=== PATIENT | female | born 1990 | race Caucasian/White ===

== ENCOUNTER 2018-04-02 23:24 | Emergency (ER) | payer MEDICAID, OTHER ==
[~2018-04-02] VITALS: Ht 170.2 cm; Wt 95.4 kg
[~2018-04-02 23:24] MED LIST: AZI25OT PO; BUSP5TAB26 PO; CETI-110 PO; FLUC150T PO; FLUO20CA22 PO; FLUT16SP18 NS; HYDR-3686 PO; PHEN-824 PO; PRAZ1CAP5 PO; QUET100T33 PO; QUET25TA34 PO
[2018-04-03] MEDS ORDERED: ondansetron/PF 4mg/2ml inj IV ONE (00:35)
[2018-04-03] MEDS ORDERED: dicyclomine 10 MG capsule PO ONE (00:35)
[2018-04-03] MEDS ORDERED: normal saline 1000ML IV soln IVB ONE (00:35)
[2018-04-03 00:44] LABS: CLARITY,URINE SLIGHTLY CLOUDY (Clear); COLOR,URINE YELLOW (Yellow); GLUCOSE, URINE NEGATIVE (Neg); KETONES,URINE 15 mg/dl (Neg); LEUKOCYTE ESTERASE ,URINE SMALL (Neg); NITRITES, URINE NEGATIVE (Neg); OCCULT BLOOD,URINE LARGE (Neg); PH,URINE 6.5 (4.8-8.0); PROTEIN,URINE NEGATIVE (Neg); UROBILINOGEN,URINE 0.2 E.U/dL (0.2-1.0)
[2018-04-03 00:45] LABS: UA COLLECTION TYPE CLN CATCH MIDSTREAM
[2018-04-03 00:46] LABS: URINE HCG NEGATIVE (NEG)
[2018-04-03 00:50] LABS: BACTERIA,URINE FEW /HPF (Neg); MUCUS STRANDS MANY /LPF (Neg); SQUAMOUS EPITHELIAL CELL,UR FEW /LPF (FEW)
[2018-04-03 02:04] LABS: BASOPHILS % (AUTO) 0.3 % (0-1); EOSINOPHILS # (AUTO) 0.2 X10'3 (0-0.9); EOSINOPHILS % (AUTO) 1.6 % (0-6); HEMATOCRIT 39.7 % (35.0-45.0); HEMOGLOBIN 13.6 g/dl (12.0-16.0); LYMPHOCYTES # (AUTO) 2.8 X10'3 (1.1-4.8); LYMPHOCYTES % (AUTO) 23.7 % (21-51); MEAN CORPUSCULAR HEMOGLOBIN 30.9 PG (27.0-31.0); MEAN CORPUSCULAR HGB CONC 34.3 % (33.0-36.5); MEAN CORPUSCULAR VOLUME 90.2 FL (78-98); MEAN PLATELET VOLUME 9.4 FL (7.4-10.4); MONOCYTES # (AUTO) 0.6 X10'3 (0-0.9); MONOCYTES % (AUTO) 4.8 % (2-12); NEUTROPHILS # (AUTO) 8.2 X10'3 (1.8-7.7); NEUTROPHILS % (AUTO) 69.6 % (42-75); PLATELET COUNT 268 X10'3 (140-440); RED BLOOD COUNT 4.41 X10'6 (4.20-5.60); RED CELL DISTRIBUTION WIDTH 13.3 % (11.5-14.5); WHITE BLOOD COUNT 11.8 X10'3 (4.5-11.0)
[2018-04-03 02:14] LABS: ALANINE AMINOTRANSFERASE 27 U/L (12-78); ALBUMIN 4.1 G/DL (3.4-5.0); ALBUMIN/GLOBULIN RATIO 1.1 (1.1-1.5); ALKALINE PHOSPHATASE 119 IU/L (46-116); ANION GAP 13 (8-16); ASPARTATE AMINO TRANSFERASE 17 U/L (10-37); BILIRUBIN,TOTAL 0.6 MG/DL (0.1-1.0); BLOOD UREA NITROGEN 14 MG/DL (7-18); BUN/CREATININE RATIO 19.7 (6.6-38.0); CALCIUM 9.6 MG/DL (8.5-10.1); CHLORIDE 102 MMOL/L (99-107); CREATININE 0.71 MG/DL (0.40-0.90); GLUCOSE 92 MG/DL (70-104); LIPASE 106 U/L (73-393); POTASSIUM 3.8 MMOL/L (3.5-5.1); SODIUM 140 MMOL/L (135-145); TOTAL CARBON DIOXIDE 24.9 MMOL/L (24-32); TOTAL PROTEIN 7.9 G/DL (6.4-8.2); eGFR > 90 ML/MIN
[2018-04-03] MEDS ORDERED: ONDA8TAB6 PO (02:30)
[2018-04-03] MEDS ORDERED: DICY10CA88 PO (02:30)
[2018-04-03 02:51] VITALS: BP 133/70
== END 2018-04-03 02:52 | disposition home or self-care (01) ==
LOC: ER 23:25
DX: R10.84 Generalized abdominal pain (principal); R11.10 Vomiting, unspecified; G43.909 Migraine, unspecified, not intractable, without status migrainosus; K21.9 Gastro-esophageal reflux disease without esophagitis; F12.10 Cannabis abuse, uncomplicated; Z79.899 Other long term (current) drug therapy
CPT/HCPCS: 36415; 80053; 81001; 81025; 83690; 85025; 87088; 96361; 96374; 99284; J2405; J7030

== ENCOUNTER 2018-06-09 15:06 | Emergency (ER) | payer MEDICAID ==
[~2018-06-09] VITALS: Ht 170.2 cm; Wt 90.0 kg
[~2018-06-09 15:06] MED LIST changes: +DICY10CA88 PO; +ONDA8TAB6 PO
[2018-06-09 16:23] LABS: CLARITY,URINE TURBID (Clear); COLOR,URINE YELLOW (Yellow); GLUCOSE, URINE NEGATIVE (Neg); KETONES,URINE 15 mg/dl (Neg); LEUKOCYTE ESTERASE ,URINE LARGE (Neg); NITRITES, URINE NEGATIVE (Neg); OCCULT BLOOD,URINE LARGE (Neg); PROTEIN,URINE 100 mg/dl (Neg); URINE HCG NEGATIVE (NEG)
[2018-06-09 16:24] LABS: UA COLLECTION TYPE CLN CATCH MIDSTREAM
[2018-06-09 16:27] LABS: BASOPHILS % (AUTO) 0.3 % (0-1); EOSINOPHILS # (AUTO) 0.1 X10'3 (0-0.9); EOSINOPHILS % (AUTO) 0.8 % (0-6); HEMATOCRIT 44.3 % (35.0-45.0); HEMOGLOBIN 15.3 g/dl (12.0-16.0); LYMPHOCYTES # (AUTO) 2.3 X10'3 (1.1-4.8); LYMPHOCYTES % (AUTO) 22.7 % (21-51); MEAN CORPUSCULAR HEMOGLOBIN 30.9 PG (27.0-31.0); MEAN CORPUSCULAR HGB CONC 34.6 % (33.0-36.5); MEAN CORPUSCULAR VOLUME 89.2 FL (78-98); MEAN PLATELET VOLUME 8.6 FL (7.4-10.4); MONOCYTES # (AUTO) 0.4 X10'3 (0-0.9); MONOCYTES % (AUTO) 4.4 % (2-12); NEUTROPHILS # (AUTO) 7.2 X10'3 (1.8-7.7); NEUTROPHILS % (AUTO) 71.8 % (42-75); PLATELET COUNT 312 X10'3 (140-440); RED BLOOD COUNT 4.96 X10'6 (4.20-5.60); RED CELL DISTRIBUTION WIDTH 13.3 % (11.5-14.5); WHITE BLOOD COUNT 10.1 X10'3 (4.5-11.0)
[2018-06-09 16:29] LABS: BACTERIA,URINE 4+ /HPF (Neg); MUCUS STRANDS MANY /LPF (Neg); SQUAMOUS EPITHELIAL CELL,UR MANY /LPF (FEW); WBC,URINE 50-100 /HPF (0-4)
[2018-06-09 16:38] LABS: INR 1.1 INR; PROTHROMBIN TIME 11.3 SECONDS (9.0-12.0)
[2018-06-09 16:46] LABS: ALANINE AMINOTRANSFERASE 25 U/L (12-78); ALBUMIN 4.6 G/DL (3.4-5.0); ALBUMIN/GLOBULIN RATIO 1.1 (1.1-1.5); ALKALINE PHOSPHATASE 153 IU/L (46-116); ANION GAP 12 (8-16); ASPARTATE AMINO TRANSFERASE 17 U/L (10-37); BILIRUBIN,TOTAL 0.7 MG/DL (0.1-1.0); BLOOD UREA NITROGEN 13 MG/DL (7-18); BUN/CREATININE RATIO 16.5 (6.6-38.0); CALCIUM 9.9 MG/DL (8.5-10.1); CHLORIDE 101 MMOL/L (99-107); CREATININE 0.79 MG/DL (0.40-0.90); GLUCOSE 86 MG/DL (70-104); POTASSIUM 3.6 MMOL/L (3.5-5.1); SODIUM 139 MMOL/L (135-145); TOTAL CARBON DIOXIDE 25.7 MMOL/L (24-32); TOTAL PROTEIN 8.8 G/DL (6.4-8.2); eGFR 87 ML/MIN
[2018-06-09] MEDS ORDERED: diphenhydrAMINE 50 mg/ml inj IV ONE (18:40)
[2018-06-09] MEDS ORDERED: CefTRIAXone 2gm/D5W 50ml 50 ML IV ONE (18:40)
[2018-06-09] MEDS ORDERED: LORazepam 2 mg/ml vial IV ONE (18:40)
[2018-06-09] MEDS ORDERED: normal saline 1000ML IV soln IVB ONE (18:40)
[2018-06-09] MEDS ORDERED: metoclopramide 5 mg/ml inj IV ONE (18:40)
[2018-06-09] MEDS ORDERED: ketorolac trometh. 30mg/ml inj. IV ONE (18:40)
[2018-06-09] MEDS ORDERED: ONDA4TAB12 PO (18:41)
[2018-06-09] MEDS ORDERED: CEPH500C5 PO (18:41)
[2018-06-09 20:06] VITALS: BP 122/59
== END 2018-06-09 20:09 | disposition home or self-care (01) ==
LOC: ER 15:07
DX: N39.0 Urinary tract infection, site not specified (principal); R10.11 Right upper quadrant pain; G43.909 Migraine, unspecified, not intractable, without status migrainosus; K21.9 Gastro-esophageal reflux disease without esophagitis; F12.90 Cannabis use, unspecified, uncomplicated; Z79.2 Long term (current) use of antibiotics; Z79.899 Other long term (current) drug therapy
CPT/HCPCS: 36415; 80053; 81001; 81025; 85025; 85610; 96365; 96375; 99284; J0696; J1200; J1885; J2060; J2765; J7030

== ENCOUNTER 2019-10-18 09:32 | Emergency (ER) | payer MEDICAID ==
[~2019-10-18] VITALS: Ht 170.2 cm; Wt 107.0 kg
[~2019-10-18 09:32] MED LIST changes: +ONDA4TAB12 PO
[2019-10-18 09:38] VITALS: BP 124/82
--- NOTE | 2019-10-18 09:45 | NUR ---
pt is in room and gave urine sample
--- NOTE | 2019-10-18 10:00 | NUR ---
lab came and jerad blood from pt
[2019-10-18 10:04] LABS: BASOPHILS % (AUTO) 0.3 % (0-1); EOSINOPHILS # (AUTO) 0.1 X10'3 (0-0.9); EOSINOPHILS % (AUTO) 1.2 % (0-6); HEMATOCRIT 37.9 % (35.0-45.0); HEMOGLOBIN 12.9 g/dl (12.0-16.0); LYMPHOCYTES # (AUTO) 2.3 X10'3 (1.1-4.8); LYMPHOCYTES % (AUTO) 29.2 % (21-51); MEAN CORPUSCULAR HEMOGLOBIN 32.2 PG (27.0-31.0); MEAN CORPUSCULAR VOLUME 94.6 FL (78-98); MEAN PLATELET VOLUME 9.3 FL (7.4-10.4); MONOCYTES # (AUTO) 0.3 X10'3 (0-0.9); MONOCYTES % (AUTO) 3.9 % (2-12); NEUTROPHILS # (AUTO) 5.1 X10'3 (1.8-7.7); NEUTROPHILS % (AUTO) 65.4 % (42-75); PLATELET COUNT 210 X10'3 (140-440); RED CELL DISTRIBUTION WIDTH 12.4 % (11.5-14.5); WHITE BLOOD COUNT 7.9 X10'3 (4.5-11.0)
[2019-10-18 10:13] LABS: URINE HCG NEGATIVE (NEG)
--- NOTE | 2019-10-18 10:20 | NUR ---
pt is awake and laying down
[2019-10-18 10:30] LABS: ALANINE AMINOTRANSFERASE 20 U/L (12-78); ALBUMIN 3.6 G/DL (3.4-5.0); ALKALINE PHOSPHATASE 78 IU/L (46-116); ANION GAP 12 (8-16); ASPARTATE AMINO TRANSFERASE 15 U/L (10-37); BILIRUBIN,TOTAL 0.2 MG/DL (0.1-1.0); BLOOD UREA NITROGEN 12 MG/DL (7-18); BUN/CREATININE RATIO 15.8 (6.6-38.0); CHLORIDE 105 MMOL/L (99-107); CREATININE 0.76 MG/DL (0.40-0.90); GLUCOSE 85 MG/DL (70-104); POTASSIUM 3.6 MMOL/L (3.5-5.1); SODIUM 141 MMOL/L (135-145); TOTAL CARBON DIOXIDE 24.4 MMOL/L (24-32); TOTAL PROTEIN 7.3 G/DL (6.4-8.2); eGFR 90 ML/MIN
[2019-10-18 10:37] LABS: ETHANOL < 0.010 GM/DL (0.0-0.010)
[2019-10-18 10:41] LABS: URINE AMPHETAMINE SCREEN NEGATIVE (Neg); URINE BARBITUATE SCREEN NEGATIVE (Neg); URINE BENZODIAZEPINES SCREEN NEGATIVE (Neg); URINE CANNABINOID SCREEN POSITIVE (Neg); URINE COCAINE SCREEN NEGATIVE (Neg); URINE METHADONE SCREEN NEGATIVE (Neg); URINE OPIATE SCREEN NEGATIVE (Neg); URINE PHENCYCLIDINE SCREEN NEGATIVE (Neg)
--- NOTE | 2019-10-18 10:45 | NUR ---
pt resting on back
--- NOTE | 2019-10-18 11:15 | NUR ---
pt laying on left side relaxing
[2019-10-18] MEDS ORDERED: BACL20TA PO (11:25)
[2019-10-18] MEDS ORDERED: GABA-534 PO (11:25)
[2019-10-18] MEDS ORDERED: FLUC150T66 PO (11:35)
[2019-10-18] MEDS ORDERED: CETI-102 PO (11:35)
[2019-10-18] MEDS ORDERED: QUET300T2 PO (11:35)
[2019-10-18] MEDS ORDERED: FLUT16SP2 BOTHNARES (11:35)
[2019-10-18] MEDS ORDERED: QUET25TA PO (11:35)
--- NOTE | 2019-10-18 11:45 | NUR ---
pt still on left side moved a little but went back to left side
--- NOTE | 2019-10-18 12:12 | NUR ---
pts brothers are here to visit pt
--- NOTE | 2019-10-18 12:20 | NUR ---
Pt lying on left side sleeping. Chest rises visible.
[2019-10-18] MEDS ORDERED: gabapentin 400mg capsule PO PRN (12:30)
[2019-10-18] MEDS ORDERED: baclofen 10mg tablet PO PRN ×2 (13:00)
--- NOTE | 2019-10-18 13:00 | NUR ---
breaking primary RN, pt is resting on her right side, eyes closed, regular breathing present, stable
--- NOTE | 2019-10-18 14:16 | NUR ---
[facility] currently evaluating Pt. Pt in bed answering questions.
--- NOTE | 2019-10-18 14:45 | NUR ---
Pt DC'd home with brother. Pt stable at DC, vitals WNL. Pt did not meet [facility] requirment for a hold. Pt stated she is feeling much better and wants to go home. Went over DC paperwork with Pt. Allowed Pt to ask questions and then asnwer them. Pt stated she will make follow up appt with her PCP when she gets home. Pt's belongings gathered and sent with Pt. Pt ambulated to lobby after DC to be picked up by brother adn driven home.
[2019-10-18] MEDS ORDERED: QUEtiapine 25mg tablet PO SCH (20:00)
[2019-10-18] MEDS ORDERED: quetiapine 100mg tablet PO SCH (21:00)
[2019-10-19] MEDS ORDERED: cetirizine 10mg tablet PO SCH (08:00)
[2019-10-19] MEDS ORDERED: fluticasone nasal spray 16GM bottle NS SCH (08:00)
== END 2019-10-18 15:04 | disposition home or self-care (01) ==
LOC: ER 09:33
DX: F32.9 Major depressive disorder, single episode, unspecified (principal); R45.851 Suicidal ideations; G43.909 Migraine, unspecified, not intractable, without status migrainosus; K21.9 Gastro-esophageal reflux disease without esophagitis; G89.29 Other chronic pain; F41.9 Anxiety disorder, unspecified; F12.90 Cannabis use, unspecified, uncomplicated; Z79.899 Other long term (current) drug therapy; Z79.2 Long term (current) use of antibiotics
CPT/HCPCS: 36415; 80053; 80305; 80320; 81025; 84443; 85025; 99284

== ENCOUNTER 2022-01-02 08:19 | Emergency (ER) | payer MEDICAID ==
[~2022-01-02] VITALS: Ht 170.2 cm; Wt 52.0 kg
[~2022-01-02 08:19] MED LIST changes: -AZI25OT PO; +BACL20TA PO; -BUSP5TAB26 PO; -CETI-110 PO; +CETI-90 PO; -DICY10CA88 PO; -FLUC150T PO; -FLUO20CA22 PO; -FLUT16SP18 NS; +FLUT16SP2 BOTHNARES; +GABA-534 PO; -HYDR-3686 PO; -ONDA4TAB12 PO; -ONDA8TAB6 PO; -PHEN-824 PO; -PRAZ1CAP5 PO; -QUET100T33 PO; +QUET25TA PO; -QUET25TA34 PO; +QUET300T2 PO
[2022-01-02 08:24] VITALS: BP 108/69
--- NOTE | 2022-01-02 09:00 | NUR ---
DR. SCHAEFFER AT BEDSIDE.
--- NOTE | 2022-01-02 09:21 | NUR ---
TELEPHONE REPORT GIVEN TO AVA AMIN
--- NOTE | 2022-01-02 09:30 | NUR ---
PT BROUGHT TO OF FROM MAIN ER. MET WITH PT SHE STATES SHE IS TIRED AND WOULD LIKE TO REST. PT PROPERTY COLLECTED AND PLACED IN RM 27 LOCKERS.
[2022-01-02 09:45] LABS: BASOPHILS % (AUTO) 0.7 % (0-1); EOSINOPHILS # (AUTO) 0.1 X10'3 (0-0.9); EOSINOPHILS % (AUTO) 2.5 % (0-6); HEMATOCRIT 36.7 % (35.0-45.0); HEMOGLOBIN 12.8 g/dl (12.0-16.0); LYMPHOCYTES # (AUTO) 2.3 X10'3 (1.1-4.8); LYMPHOCYTES % (AUTO) 42.9 % (21-51); MEAN CORPUSCULAR HEMOGLOBIN 32.5 PG (27.0-31.0); MEAN CORPUSCULAR HGB CONC 34.8 g/dL (33.0-36.5); MEAN CORPUSCULAR VOLUME 93.4 FL (78-98); MEAN PLATELET VOLUME 8.8 FL (7.4-10.4); MONOCYTES # (AUTO) 0.4 X10'3 (0-0.9); MONOCYTES % (AUTO) 6.8 % (2-12); NEUTROPHILS # (AUTO) 2.5 X10'3 (1.8-7.7); NEUTROPHILS % (AUTO) 47.1 % (42-75); PLATELET COUNT 211 X10'3 (140-440); RED BLOOD COUNT 3.93 X10'6 (4.20-5.60); RED CELL DISTRIBUTION WIDTH 13.8 % (11.5-14.5); WHITE BLOOD COUNT 5.3 X10'3 (4.5-11.0)
[2022-01-02 09:52] LABS: ALANINE AMINOTRANSFERASE 39 U/L (12-78); ALBUMIN 3.6 G/DL (3.4-5.0); ALBUMIN/GLOBULIN RATIO 1.1 (1.1-1.5); ALKALINE PHOSPHATASE 85 IU/L (46-116); ANION GAP 8 (8-16); ASPARTATE AMINO TRANSFERASE 20 U/L (10-37); BILIRUBIN,TOTAL 0.4 MG/DL (0.1-1.0); BLOOD UREA NITROGEN 13 MG/DL (7-18); BUN/CREATININE RATIO 18.6 (6.6-38.0); CALCIUM 8.5 MG/DL (8.5-10.1); CHLORIDE 107 MMOL/L (99-107); GLUCOSE 88 MG/DL (70-104); POTASSIUM 4.1 MMOL/L (3.5-5.1); SODIUM 142 MMOL/L (135-145); TOTAL CARBON DIOXIDE 27.3 MMOL/L (24-32); TOTAL PROTEIN 6.9 G/DL (6.4-8.2); eGFR > 90 ML/MIN
[2022-01-02 10:03] LABS: ETHANOL < 0.010 GM/DL (0.0-0.010)
[2022-01-02 10:22] LABS: URINE HCG NEGATIVE (NEG)
[2022-01-02 10:30] LABS: CLARITY,URINE CLEAR (Clear); COLOR,URINE YELLOW (Yellow); GLUCOSE, URINE NEGATIVE (Neg); KETONES,URINE NEGATIVE (Neg); LEUKOCYTE ESTERASE ,URINE NEGATIVE (Neg); NITRITES, URINE NEGATIVE (Neg); OCCULT BLOOD,URINE NEGATIVE (Neg); PROTEIN,URINE NEGATIVE (Neg); URINE AMPHETAMINE SCREEN NEGATIVE (Neg); URINE BARBITUATE SCREEN NEGATIVE (Neg); URINE BENZODIAZEPINES SCREEN NEGATIVE (Neg); URINE CANNABINOID SCREEN POSITIVE (Neg); URINE COCAINE SCREEN NEGATIVE (Neg); URINE METHADONE SCREEN NEGATIVE (Neg); URINE OPIATE SCREEN NEGATIVE (Neg); URINE PHENCYCLIDINE SCREEN NEGATIVE (Neg); UROBILINOGEN,URINE 0.2 E.U/dL (0.2-1.0)
[2022-01-02 10:44] LABS: UA COLLECTION TYPE NON-SPECIFIED
--- NOTE | 2022-01-02 11:25 | NUR ---
PT HAS BEEN ON THE PHONE ARGUING AND CUSSING OUT HER SIGNIFICANT OTHER. SHE DENIES SA. SHE STATES, "I WAS ANGRY, I HAD THE KNIFE IN MY HAND.' 'I WAS VERY CLOSE TO AN ATTEMPT." PT IS PLEASANT WITH STAFF.
[2022-01-02] MEDS ORDERED: LURA80TA2 PO (12:22)
[2022-01-02] MEDS ORDERED: MIRT-87 PO (12:22)
[2022-01-02] MEDS ORDERED: PRAZ1CAP5 PO (12:22)
[2022-01-02] MEDS ORDERED: PRAZ2CAP2 PO (12:22)
--- NOTE | 2022-01-02 12:30 | NUR ---
PACKET SENT TO [facility] OFFICE
--- NOTE | 2022-01-02 13:11 | NUR ---
PT EATING LUNCH. SHE WAS GIVEN A WARM BLANKET PER REQUEST.
--- NOTE | 2022-01-02 13:58 | NUR ---
PT IS RESTING. APPEARS TO BE SLEEPING. RR EVEN AND UNLABORED.
--- NOTE | 2022-01-02 15:12 | NUR ---
PT REMAINS SLEEPING ON HER RIGHT SIDE. RR EVEN AND UNLABORED.
--- NOTE | 2022-01-02 15:58 | NUR ---
PT DISCHARGED HOME WITH HER SIGNIFICANT OTHER. ALL PERSONAL BELONGINGS RETURNED TO PT. PT DENIES THOUGHTS TO HARM SELF AND IS NO LONGER FEELING SUICIDIAL.
[2022-01-02] MEDS ORDERED: non-formulary drug (Prazosin Hcl 2 MG) PO SCH (21:00)
[2022-01-02] MEDS ORDERED: mirtazapine 15mg tablet PO SCH (21:00)
[2022-01-02] MEDS ORDERED: lurasidone 20mg tablet PO SCH (21:00)
[2022-01-02] MEDS ORDERED: prazosin 1mg capsule PO SCH (21:00)
== END 2022-01-02 16:38 | disposition home or self-care (01) ==
LOC: ER 08:20
DX: R45.851 Suicidal ideations (principal); G43.909 Migraine, unspecified, not intractable, without status migrainosus; Z20.822 Contact with and (suspected) exposure to COVID-19; K21.9 Gastro-esophageal reflux disease without esophagitis; F41.9 Anxiety disorder, unspecified; G89.29 Other chronic pain; F32.9 Major depressive disorder, single episode, unspecified; F12.90 Cannabis use, unspecified, uncomplicated; Z72.89 Other problems related to lifestyle; Z79.899 Other long term (current) drug therapy
CPT/HCPCS: 36415; 80053; 80305; 80320; 81003; 81025; 84443; 85025; 87635; 99285; C9803

== ENCOUNTER 2023-07-23 09:51 | Emergency (ER) | payer MEDICAID ==
[~2023-07-23] VITALS: Ht 170.2 cm; Wt 60.6 kg
[~2023-07-23 09:51] MED LIST changes: -GABA-534 PO; +GABA-535 PO; +LURA80TA2 PO; +MIRT-87 PO; +PRAZ1CAP5 PO; +PRAZ2CAP2 PO
[2023-07-23 11:13] LABS: BASOPHILS % (AUTO) 0.3 % (0-1); EOSINOPHILS # (AUTO) 0.1 X10'3 (0-0.9); EOSINOPHILS % (AUTO) 0.7 % (0-6); HEMATOCRIT 38.6 % (35.0-45.0); HEMOGLOBIN 12.7 g/dl (12.0-16.0); LYMPHOCYTES # (AUTO) 2.1 X10'3 (1.1-4.8); LYMPHOCYTES % (AUTO) 16.4 % (21-51); MEAN CORPUSCULAR HEMOGLOBIN 32.3 PG (27.0-31.0); MEAN CORPUSCULAR VOLUME 97.8 FL (78-98); MEAN PLATELET VOLUME 8.3 FL (7.4-10.4); MONOCYTES # (AUTO) 0.9 X10'3 (0-0.9); MONOCYTES % (AUTO) 7.1 % (2-12); NEUTROPHILS # (AUTO) 9.5 X10'3 (1.8-7.7); NEUTROPHILS % (AUTO) 75.5 % (42-75); PLATELET COUNT 298 X10'3 (140-440); RED BLOOD COUNT 3.94 X10'6 (4.20-5.60); RED CELL DISTRIBUTION WIDTH 13.2 % (11.5-14.5); WHITE BLOOD COUNT 12.6 X10'3 (4.5-11.0)
[2023-07-23 11:23] LABS: ALANINE AMINOTRANSFERASE 13 U/L (12-78); ALBUMIN 2.9 G/DL (3.4-5.0); ALBUMIN/GLOBULIN RATIO 0.6 (1.1-1.5); ALKALINE PHOSPHATASE 106 IU/L (46-116); ANION GAP 7 (8-16); ASPARTATE AMINO TRANSFERASE 18 U/L (10-37); BILIRUBIN,TOTAL 0.4 MG/DL (0.1-1.0); BLOOD UREA NITROGEN 8 MG/DL (7-18); CALCIUM 9.1 MG/DL (8.5-10.1); CHLORIDE 101 MMOL/L (99-107); CREATININE 0.47 MG/DL (0.40-0.90); GLUCOSE 85 MG/DL (70-104); POTASSIUM 4.1 MMOL/L (3.5-5.1); SODIUM 135 MMOL/L (135-145); TOTAL CARBON DIOXIDE 27.2 MMOL/L (24-32); TOTAL PROTEIN 7.4 G/DL (6.4-8.2); eCRCL 164 ML/MIN; eGFR > 90 ML/MIN
[2023-07-23 11:36] LABS: ETHANOL < 10 MG/DL (<10)
[2023-07-23 12:00] LABS: URINE AMPHETAMINE SCREEN NEGATIVE (Neg); URINE BARBITUATE SCREEN NEGATIVE (Neg); URINE BENZODIAZEPINES SCREEN NEGATIVE (Neg); URINE CANNABINOID SCREEN POSITIVE (Neg); URINE COCAINE SCREEN NEGATIVE (Neg); URINE METHADONE SCREEN NEGATIVE (Neg); URINE OPIATE SCREEN NEGATIVE (Neg); URINE PHENCYCLIDINE SCREEN NEGATIVE (Neg)
[2023-07-23 12:19] LABS: URINE HCG POSITIVE (NEG)
--- NOTE | 2023-07-23 12:45 | NUR ---
Patient brought to bed 24 from ER. Patient is and states that she and her S/O got into a fight last night and was feeling suicidal. She said she awoke and her boyfriend started arguing with her and she left and came to the ER. Patient reports that she needs a medication to help with her emotions while she is .
--- NOTE | 2023-07-23 13:45 | NUR ---
Patient up to the restroom. Faxed down request for lunch x 2, awaiting her lunch.
[2023-07-23] MEDS ORDERED: PNV,1TAB PO (13:52)
--- NOTE | 2023-07-23 15:02 | NUR ---
Patient up to the restroom, then back to bed.
--- NOTE | 2023-07-23 15:04 | NUR ---
Patient is on a 1799 per the M.D., but will not be put on a hold tonight. [facility] will work on a safe discharge plan tomorrow.
--- NOTE | 2023-07-23 16:40 | NUR ---
Patient up to the restroom, then back to bed with a warm blanket.
--- NOTE | 2023-07-23 17:23 | NUR ---
Patient in the restroom, and back to bed.
[2023-07-23] MEDS ORDERED: ondansetron 4mg rapidly disintigrating tab PO ONE (18:55)
--- NOTE | 2023-07-23 19:31 | NUR ---
Client reported nausea. Given 4 mg Zofran ODT at 19:15.
--- NOTE | 2023-07-23 20:16 | NUR ---
Client reported nausea has improved. Denies SI at this time. Client reported that she began cutting at age 13 yo, and has had several SA's. Client is vague about prior attempts. She did not state how or when she made the attempts. She is resting at this time.
--- NOTE | 2023-07-23 21:37 | NUR ---
Ambulated to restroom at 21:35.
--- NOTE | 2023-07-23 23:03 | NUR ---
Ambulated to restroom at 22:40 and returned to bed. Fell asleep w/o difficulty. Resp even and unlabored.
--- NOTE | 2023-07-24 02:00 | NUR ---
Resting on right side. Respirations even and unlabored.
--- NOTE | 2023-07-24 04:00 | NUR ---
Resting on right side. Resp even and unlabored.
[2023-07-24 05:33] VITALS: BP 103/59; PULSE 74; RESP 14; TEMP 97.1; O2SAT 97
--- NOTE | 2023-07-24 05:45 | NUR ---
Resting on back. Resp even and unlabored.
--- NOTE | 2023-07-24 06:55 | NUR ---
Patient appears to be sleeping on her right side. Was sitting up awake 20 minutes ago. No distress observed. Continue to monitor.
[2023-07-24] MEDS ORDERED: [UNRECOGNIZED DRUG - REMARK] PO SCH (08:00)
--- NOTE | 2023-07-24 08:16 | NUR ---
Patient eating breakfast. No distress observed. Continue to monitor.
--- NOTE | 2023-07-24 10:11 | NUR ---
Patient sitting up in bed. No distress observed.
--- NOTE | 2023-07-24 10:23 | NUR ---
Gerald MEAD, evaluating patient. No distress observed. Continue to monitor.
--- NOTE | 2023-07-24 11:32 | NUR ---
Patient to be discharged home. Patient denying suicidal ideation. No distress observed. Continue with the plan of care.
[2023-07-24] MEDS ORDERED: ONDA4TAB12 PO (11:37)
--- NOTE | 2023-07-24 12:20 | NUR ---
Patient eating lunch. It took 45 minutes for Registration to bring belongings due to new policy of 2 person getting into the safe. Continue to monitor.
== END 2023-07-24 13:32 | disposition home or self-care (01) ==
LOC: ER 09:52
DX: O99.342 Other mental disorders complicating pregnancy, second trimester (principal); Z20.822 Contact with and (suspected) exposure to COVID-19; F99 Mental disorder, not otherwise specified; Z3A.27 27 weeks gestation of pregnancy; F32.A Depression, unspecified; G43.909 Migraine, unspecified, not intractable, without status migrainosus; K21.9 Gastro-esophageal reflux disease without esophagitis; F12.90 Cannabis use, unspecified, uncomplicated; Z88.8 Allergy status to other drugs, medicaments and biological substances; Z91.018 Allergy to other foods; Z79.899 Other long term (current) drug therapy
CPT/HCPCS: 36415; 80053; 80305; 80320; 81025; 85025; 87811; 99283; 99284

== ENCOUNTER 2024-02-18 12:59 | Emergency (ER) | payer MEDICAID ==
[~2024-02-18] VITALS: Ht 170.2 cm; Wt 71.0 kg
[2024-02-18 12:59] VITALS: BP 127/79; PULSE 94; RESP 16; TEMP 97.8; O2SAT 99
[~2024-02-18 12:59] MED LIST changes: -BACL20TA PO; -CETI-90 PO; -FLUT16SP2 BOTHNARES; -GABA-535 PO; -LURA80TA2 PO; -MIRT-87 PO; +ONDA4TAB12 PO; +PNV,1TAB PO; -PRAZ1CAP5 PO; -PRAZ2CAP2 PO; -QUET25TA PO; -QUET300T2 PO
[2024-02-18] MEDS ORDERED: DIF150T PO (13:54)
[2024-02-18] MEDS ORDERED: AMOX-580 PO (13:54)
== END 2024-02-18 14:00 | disposition home or self-care (01) ==
LOC: ER 12:59
DX: J01.90 Acute sinusitis, unspecified (principal); J20.9 Acute bronchitis, unspecified; G43.909 Migraine, unspecified, not intractable, without status migrainosus; K21.9 Gastro-esophageal reflux disease without esophagitis; F41.9 Anxiety disorder, unspecified; F12.10 Cannabis abuse, uncomplicated; Z88.8 Allergy status to other drugs, medicaments and biological substances; Z79.899 Other long term (current) drug therapy
CPT/HCPCS: 99283

== ENCOUNTER 2024-06-04 14:07 | Emergency (ER) | payer MEDICAID ==
[~2024-06-04] VITALS: Ht 170.2 cm; Wt 72.0 kg
[~2024-06-04 14:07] MED LIST changes: +ONDA-243 PO; -ONDA4TAB12 PO
[2024-06-04 14:16] VITALS: BP 129/79; PULSE 94; RESP 16; TEMP 98.5; O2SAT 98
[2024-06-04 16:37] LABS: STREP A SCREEN POSITIVE (Neg)
[2024-06-04] MEDS: CefTRIAXone 1000mg IM Kit (w/lidocaine diluent) IM ONE (17:12)
== END 2024-06-04 17:11 | disposition home or self-care (01) ==
LOC: ER 14:08
DX: U07.1 COVID-19 (principal); J02.0 Streptococcal pharyngitis; G43.909 Migraine, unspecified, not intractable, without status migrainosus; K21.9 Gastro-esophageal reflux disease without esophagitis; F12.90 Cannabis use, unspecified, uncomplicated; Z88.8 Allergy status to other drugs, medicaments and biological substances; Z91.018 Allergy to other foods; Z79.899 Other long term (current) drug therapy
CPT/HCPCS: 87880; 96372; 99283; J0696